=== PATIENT | female | born 1975 | race Caucasian/White ===

== ENCOUNTER → 2017-04-09 | Outpatient (CLI) | payer BC ==
--- NOTE | 2017-04-17 09:56 | MG ---
HISTORY: SCREENING Comparison: October 25, 2008 FINDINGS: Bilateral CC and MLO projections of the right and left breast were obtained utilizing both full-fiel d and push back techniques. Heterogeneously dense fibroglandular tissue is seen to be present with interval breast augmentation with bilateral subpectoral saline implants appearing grossly intact. N o new or developing dominant suspicious architectural distortion, mass or clustered microcalcificati ons can be observed to suggest malignancy. No skin thickening or nipple retraction is appreciated. No pathological lymphadenopathy can be identified. IMPRESSION: NO RADIOGRAPHIC EVIDENCE OF MALIGNANCY. ACR CATEGORY I - NEGATIVE EXAM. FOLLOW-UP EXAM 1 YEAR. Diagnostic CAD was utilized and reviewed. * 0 (ZERO) - ASSESSMENT INCOMPLETE; ADDITIONAL IMAGING IS NEEDED. * 1/ (ONE) - NEGATIVE. * 2/II (TWO) - BENIGN FINDINGS. * 3/III (THREE) - PROBABLY BENIGN FINDING; SHORT INTERVAL FOLLOW-UP SUGGESTED. * 4/IV (FOUR) - SUSPICIOUS ABNORMALITY; BIOPSY SHOULD BE CONSIDERED. * 5/V (FIVE) - HIGHLY SUSPICIOUS OF MALIGNANCY; BIOPSY SHOULD BE PERFORMED. A NEGATIVE X-RAY REPORT SHOULD NOT DELAY BIOPSY IF A DOMINANT OR CLINICALLY SUSPICIOUS MASS IS PRESENT; 4 TO 8 PERCENT OF CANCERS ARE NOT IDENTIFIED BY X-RAY. A NEG ATIVE REPORT MAY REINFORCE THE CLINICAL IMPRESSION. ADENOSIS AND DENSE BREASTS MAY OBSCURE AN UNDER LYING NEOPLASM. Reported By:
== END ==
LOC: RAD 12:47
PROVIDERS: ATTEND Obstetrics & Gynecology
DX: Z12.31 Encounter for screening mammogram for malignant neoplasm of breast (principal)
CPT/HCPCS: 77067

== ENCOUNTER 2018-06-11 02:37 | Inpatient (IN) ==
[2018-06-11 02:45] VITALS: BMI 24.0
[2018-06-11] MEDS ORDERED: ZOFRAN INJ 4 MG VIAL IVP ONE (02:50)
[2018-06-11] MEDS ORDERED: NS 1000 ML 1,000 ML IV ONE (02:50)
[2018-06-11] MEDS ORDERED: TORADOL 30 MG VIAL IVP ONE (02:50)
[2018-06-11] MEDS ORDERED: NS 1000 ML 1,000 ML ONE (02:50)
[2018-06-11] MEDS ORDERED: ZOFRAN INJ 4 MG VIAL ONE (02:51)
[2018-06-11] MEDS ORDERED: TORADOL 30 MG VIAL ONE (02:51)
[2018-06-11 03:01] LABS: BILIRUBIN,URINE NEGATIVE (NEGATIVE); BLOOD/HEMOGLOBIN,URINE 5+ (NEGATIVE); GLUCOSE, URINE NEGATIVE (NEGATIVE); KETONES,URINE 4+ (NEGATIVE); LEUKOCYTE ESTERASE ,URINE 2+ (NEGATIVE); NITRITES,URINE NEGATIVE (NEGATIVE); PROTEIN,URINE 2+ (NEGATIVE); UROBILINOGEN,URINE NORMAL (NORMAL)
[2018-06-11 03:23] LABS: BASOPHILS % (AUTO) 0.1 % (0.2-1.0); HEMATOCRIT 44.6 % (36.0-47.0); HEMOGLOBIN 15.3 g/dL (12.0-16.0); LYMPHOCYTES # (AUTO) 0.5 X10^3/uL (1.3-2.9); LYMPHOCYTES % (AUTO) 2.7 % (21.0-51.0); MEAN CORPUSCULAR HEMOGLOBIN 29.6 pg (27.0-34.0); MEAN CORPUSCULAR HGB CONC 34.4 g/dL (33.0-35.0); MEAN CORPUSCULAR VOLUME 85.9 fL (80.0-100.0); MEAN PLATELET VOLUME 7.7 fL (7.4-11.0); MONOCYTES # (AUTO) 0.9 x10^3/uL (0.3-0.8); MONOCYTES % (AUTO) 4.6 % (0.0-13.0); NEUTROPHILS # (AUTO) 17.7 x10^3/uL (2.2-4.8); NEUTROPHILS % (AUTO) 92.6 % (42.0-75.0); PLATELET COUNT 378 X10^3/uL (150.0-450.0); RED BLOOD COUNT 5.19 X10^6/uL (3.5-5.4); RED CELL DISTRIBUTION WIDTH 13.5 % (11.6-16.5); WHITE BLOOD COUNT 19.2 X10^3/uL (3.6-10.0)
[2018-06-11 03:27] LABS: APPEARANCE,URINE HAZY (CLEAR); COLOR,URINE YELLOW (YELLOW)
[2018-06-11 03:28] LABS: BACTERIA,URINE 1+ /HPF (NEGATIVE); MUCUS,URINE MODERATE /HPF (NEGATIVE); RBC,URINE TNTC /HPF (NONE SEEN); SQUAMOUS EPITHELIAL CELL,UR MANY /HPF (NEGATIVE)
[2018-06-11 03:32] LABS: ALANINE AMINOTRANSFERASE 21 Units/L (12-78); ALBUMIN 3.7 g/dL (3.4-5.0); ALKALINE PHOSPHATASE 58 Units/L (46-116); ASPARTATE AMINO TRANSFERASE 13 Units/L (15-37); BLOOD UREA NITROGEN 24 mg/dL (7-18); CALCIUM 9.2 mg/dL (8.5-10.1); CHLORIDE 101 mmol/L (98-107); CREATININE 0.96 mg/dL (0.55-1.02); SODIUM 136 mmol/L (136-145); TOTAL PROTEIN 7.9 g/dL (6.4-8.2); eGFR NON BLACK RACES > 60 (>60)
--- NOTE | 2018-06-11 03:52 | ED.ABDFE ---
HPI Time Seen Time Seen by Provider: 06/11/18 02:58 PCP Primary Care Physician: RON HPI Comment HPI Comment: PAIN GETTING WORSE. NO FEVER. NO DIARRHEA. Complaint Doctors Chief Complaint Comments: RIGHT FLANK PAIN GOING INTO RLQ WITH N/V AND URINARY FREQUENCY THAT STARTED TONIGHT WHEN SHE WENT TO BED. Chief Complaint:: PATIENT C/O RIGHT SIDED LOWER BACK PAIN THAT RADIATES TO THE RIGHT SIDE OF ABD THAT STARTED TONIGHT SUDDENDLY WITH N/V. PATIENT STATES SHE FEELS LIKE SHE HAS TO URINATE CONSTANTLY BUT IS UNABLE TO REALLY VOID. Self Treatment fo Chief Complaint: TYLENOL 10PM Reviewed Nurses Notes Review: Yes Source History Provided: Patient Mode of arrival Mode of Arrival: Ambulatory Timing Onset of Chief Complaint: 06/11/18 Came on: Suddenly Duration Since Onset: Constant Duration: Hours Location Location: RLQ (ALSO RT LOWER BACK.) Quality Quality: Cramping Context History of: None Modifying factors Worsening Factors: Nothing Improving Factors: Nothing Associated signs and symptoms Associated Signs and Symptoms: Nausea, Vomiting and Frequency PMH PMH Past Medical History: Yes Past Medical History: Hypertension Past Medical History Comment: KIDNEY STONES Past Surgical History: No Family History History of Family Medical Conditions: Yes Family Medical History: Hypertension Social History Does patient currently use any type of tobacco product: No Have you used tobacco products in the last 12 months: No Type of Tobacco Use: None Does any household member use tobacco: No Alcohol Use: None Do you use any recreational Drugs:: No Lives With: Significant Other Lives Where: Home infectious screening In the last 2 months have you had wt loss of >10#?: NO Have you had fever, night sweats or hemotysis?: No Have you traveled outside the country in the last 6 months?: No Isolation: Standard ROS Review of Systems Constitutional: Weakness and Fatigue Eyes: No Symptoms Reported ENTM: No Symptoms Reported Respiratoy: No Symptoms Reported Cardiovascular: No Symptoms Reported Gastrointestinal/Abdominal: Abdominal Pain, Nausea and Vomiting Genitourinary: Frequency Neurological: Weakness Musculoskeletal: Back Pain, Muscle Pain and Back Integumentary: No Symptoms Reported Hematologic/Lymphatic: No Symptoms Reported Endocrine: No Symptoms Reported Psychiatric: No Symptoms Reported All Other Systems: Reviewed and Negative PE Vital Signs Vitals: Temperature 98.6 F Pulse Rate 84 Respiratory Rate 18 Blood Pressure 138/86 O2 Sat by Pulse Oximetry 99 General Limitations: No Limitations General Appearance: Alert and In No Apparent Distress Head Head Exam: Normal Inspection Eyes Eye exam: Normal Appearance and PERRL; negative Scleral Icterus and Conjunctival Injection ENT ENT Exam: Normal Exam, Normal Oropharynx, Normal External Ear Exam, Mucous Membranes Dry and TM's Normal Bilaterally Neck Neck Exam: Normal Inspection and Trachea Midline Chest Chest Inspection: Normal Inspection and Symmetric Chest Wall Rise Respiratory Respiratory Exam: Normal Lung Sounds Bilat Respiratory Exam: Bilateral: Clear to Auscultation Cardiovascular Cardiovascular Exam: Regular Rate, Normal Rhythm and Normal Heart Sounds Abdominal Exam Abdominal Exam: Normal Bowel Sounds, Soft and Tenderness Abdominal Tenderness: RLQ Rectal Rectal Exam: Deferred Back Back Exam: (R) CVA Tenderness Extremeties Extremities Exam: Normal Inspection External Exam: Female: Normal External Exam and Deferred : Speculum Exam (Female): Deferred : Bimanual Exam (female): Deferred Neurologic Neurological Exam: Oriented X3 and CN II-XII Intact; negative Motor Sensory Deficit MDM Additional Information Obtained From Additional information provided by: Family Differential Diagnosis Differential Diagnosis- Considerations may include:: Appendicitis, Bowel Obstruction, Cholcystitis, Cholelethiasis, Constipation, Diverticular disease, Gastritus/PUD, Ovarian cyst/torsion, Pancreatitis, Urinary tract infection and Urolithiasis COURSE Treatment Treatment: SEE ORDERS. IV TORADOL AND ZOFRAN IN ED. NS IV BOLUS IN ED. Education/Counseling Education/Counseling: Patient, Family and Education Educated On: Diagnosis ROR Labs Reviewed Laboratory Results Reviewed?: Yes Result Diagrams: 06/11/18 03:10 06/11/18 03:10 Laboratory: WBC 19.2 X10^3/uL (3.6-10.0) H 06/11/18 03:10 RBC 5.19 X10^6/uL (3.5-5.4) 06/11/18 03:10 Hgb 15.3 g/dL (12.0-16.0) 06/11/18 03:10 Hct 44.6 % (36.0-47.0) 06/11/18 03:10 MCV 85.9 fL (80.0-100.0) 06/11/18 03:10 MCH 29.6 pg (27.0-34.0) 06/11/18 03:10 MCHC 34.4 g/dL (33.0-35.0) 06/11/18 03:10 RDW 13.5 % (11.6-16.5) 06/11/18 03:10 Plt Count 378 X10^3/uL (150.0-450.0) 06/11/18 03:10 Plt Count Comment Adequate (ADEQUATE) 06/11/18 03:10 MPV 7.7 fL (7.4-11.0) 06/11/18 03:10 Neut % (Auto) 92.6 % (42.0-75.0) H 06/11/18 03:10 Lymph % (Auto) 2.7 % (21.0-51.0) L 06/11/18 03:10 Stevens % (Auto) 4.6 % (0.0-13.0) 06/11/18 03:10 Eos % (Auto) 0.0 % (0.9-2.9) L 06/11/18 03:10 Baso % (Auto) 0.1 % (0.2-1.0) L 06/11/18 03:10 Neut # (Auto) 17.7 x10^3/uL (2.2-4.8) H 06/11/18 03:10 Lymph # (Auto) 0.5 X10^3/uL (1.3-2.9) L 06/11/18 03:10 Stevens # (Auto) 0.9 x10^3/uL (0.3-0.8) H 06/11/18 03:10 Eos # (Auto) 0.0 x10^3/uL (0.0-0.2) 06/11/18 03:10 Baso # (Auto) 0.0 X10^3/uL (0.0-0.1) 06/11/18 03:10 Absolute Nucleated RBC 0.2 /100WBC 06/11/18 03:10 Total Counted 100 06/11/18 03:10 Neutrophils % (Manual) 93 % (39-76) H 06/11/18 03:10 Band Neutrophils % 2 % (0-10) 06/11/18 03:10 Lymphocytes % (Manual) 3 % (13-43) L 06/11/18 03:10 Monocytes % (Manual) 2 % (4-9) L 06/11/18 03:10 Plt Morphology Comment Normal (NORMAL) 06/11/18 03:10 RBC Morphology Normal (NORMAL) 06/11/18 03:10 Sodium 136 mmol/L (136-145) 06/11/18 03:10 Corrected Sodium TNP 06/11/18 03:10 Potassium 3.7 mmol/L (3.5-5.1) 06/11/18 03:10 Chloride 101 mmol/L (98-107) 06/11/18 03:10 Carbon Dioxide 25.0 mmol/L (21-32) 06/11/18 03:10 BUN 24 mg/dL (7-18) H 06/11/18 03:10 Creatinine 0.96 mg/dL (0.55-1.02) 06/11/18 03:10 Est GFR (MDRD) Af Amer > 60 (>60) 06/11/18 03:10 Est GFR (MDRD) Non-Af > 60 (>60) 06/11/18 03:10 Glucose 97 mg/dL (65-99) 06/11/18 03:10 Calcium 9.2 mg/dL (8.5-10.1) 06/11/18 03:10 Corrected Calcium TNP 06/11/18 03:10 Total Bilirubin 0.50 mg/dL (0.2-1.0) 06/11/18 03:10 AST 13 Units/L (15-37) L 06/11/18 03:10 ALT 21 Units/L (12-78) 06/11/18 03:10 Alkaline Phosphatase 58 Units/L (46-116) 06/11/18 03:10 Total Protein 7.9 g/dL (6.4-8.2) 06/11/18 03:10 Albumin 3.7 g/dL (3.4-5.0) 06/11/18 03:10 Globulin 4.2 g/dL (2.5-4.5) 06/11/18 03:10 Albumin/Globulin Ratio 0.9 Ratio (1.1-2.1) L 06/11/18 03:10 Specimen Type Clean catch urine 06/11/18 02:53 Urine Color Yellow (YELLOW) 06/11/18 02:53 Urine Appearance Hazy (CLEAR) 06/11/18 02:53 Urine pH 5.0 (5.0 - 8.0) 06/11/18 02:53 Ur Specific [place] 1.020 (1.000-1.030) 06/11/18 02:53 Urine Protein 2+ (NEGATIVE) 06/11/18 02:53 Urine Glucose (UA) Negative (NEGATIVE) 06/11/18 02:53 Urine Ketones 4+ (NEGATIVE) 06/11/18 02:53 Urine Occult Blood 5+ (NEGATIVE) 06/11/18 02:53 Urine Nitrite Negative (NEGATIVE) 06/11/18 02:53 Urine Bilirubin Negative (NEGATIVE) 06/11/18 02:53 Urine Urobilinogen Normal (NORMAL) 06/11/18 02:53 Ur Leukocyte Esterase 2+ (NEGATIVE) 06/11/18 02:53 Urine RBC Tntc /HPF (NONE SEEN) 06/11/18 02:53 Urine WBC 5-10 /HPF (NONE SEEN) 06/11/18 02:53 Ur Squamous Epith Cells Many /HPF (NEGATIVE) 06/11/18 02:53 Urine Bacteria 1+ /HPF (NEGATIVE) 06/11/18 02:53 Urine Mucus Moderate /HPF (NEGATIVE) 06/11/18 02:53 Ur Culture Indicated? Yes/culture set up 06/11/18 02:53 XRAY XRAY Findings: REPORT DISCUSS WITH PATIENT AND HER . Diagnosis Discharge Problem: Kidney stone on right side, Right flank pain, Pyelonephritis
[2018-06-11 04:00] LABS: BAND NEUTROPHILS % 2 % (0-10); PLATELET MORPHOLOGY COMMENT NORMAL (NORMAL)
--- NOTE | 2018-06-11 04:24 | CT ---
CT abdomen and pelvis without contrast Indication: Back pain and flank pain Technique: Helical images through the abdomen and pelvis without contrast. Coronal and sagittal refor mats provided. Comparison: No prior abdominal imaging currently available Findings: Review of bone windows shows no destructive osseous lesion Limited images through the lower chest shows breast implants. There is no other acute abnormality Abdomen: Scattered hepatic hypodensities are noted. These are compatible with cysts. The spleen and p ancreas are normal. The adrenal glands are normal. Innumerable renal hypodensities are compatible wit h cysts most of which are hypodense but several which are indeterminate. Vasculature shows scattered calcifications. The stomach and small bowel are normal. No acute colonic abnormality identified. The appendix is not well seen, probably normal. Several renal stones are seen in the right kidney, right lower pole 5 mm stone on axial image 42, rig ht lower pole/interpolar 5 mm stone on axial image 49 and other punctate stone on axial image 44. In the renal pelvis there are several stones seen on coronal image 25, probably a dozen small stones are more. There is mild dilatation of the collecting system and right ureter, with 3 mm stone at the rig ht ureterovesical junction on coronal image 21 and axial image 78. Pelvis: The urinary bladder and rectum are normal. Uterus and adnexa show no acute abnormality Impression: 1. Mild right hydroureteronephrosis with obstructing stone at the right ureterovesical junction 2. Multiple nonobstructing right renal stones common most of which are in the lower pole and collecti ng in the renal pelvis. 3. Numerous liver and kidney cysts, compatible with autosomal dominant polycystic kidney disease. Nep hrology follow-up will be needed 4. Minimal vascular plaque, and other incidental findings as above Reported By:
[2018-06-11] MEDS ORDERED: ROCEPHIN VIAL 1 GRAM 1 G in NS 100 ML IV + SPIKE MINIBAG* 100 ML IV ONE (04:58)
[2018-06-11] MEDS: NS 1000 ML 1,000 ML IV SCH ×3 (05:00→21:33)
[2018-06-11] MEDS ORDERED: ROCEPHIN VIAL 1 GRAM ONE (05:00)
[2018-06-11] MEDS ORDERED: NS 100 ML IV 100 ML IV ONE (05:00)
[2018-06-11] MEDS ORDERED: PEPCID TAB 20 MG PO PRN (07:27)
[2018-06-11] MEDS ORDERED: ZOFRAN INJ 4 MG VIAL IVP PRN (07:27)
[2018-06-11] MEDS ORDERED: TORADOL 15 MG VIAL IVP PRN (07:31)
[2018-06-11] MEDS ORDERED: FLONASE NASAL SPRAY ENOSTRIL PRN (11:13)
[2018-06-11] MEDS: MORPHINE SULFATE INJ 2 MG INJ IVP PRN ×2 (11:32→17:34)
[2018-06-11] MEDS: ROCEPHIN VIAL 1 GRAM 1 G in NS 100 ML IV + SPIKE MINIBAG* 100 ML IV SCH (11:35)
[2018-06-11] MEDS ORDERED: TOPROL XL PO PRN (11:56)
[2018-06-11] MEDS ORDERED: SINGULAIR TAB 10 MG PO SCH (12:00)
[2018-06-11] MEDS: TORADOL 15 MG VIAL IVP SCH ×3 (12:46→22:33)
[2018-06-11] MEDS: ZESTRIL TAB 10 MG PO SCH (14:25)
[2018-06-11] MEDS ORDERED: AMBIEN PO SCH (21:00)
[2018-06-12] MEDS: MORPHINE SULFATE INJ 2 MG INJ IVP PRN ×2 (02:43→08:38)
[2018-06-12] MEDS: NS 1000 ML 1,000 ML IV SCH (04:42)
[2018-06-12] MEDS: TORADOL 15 MG VIAL IVP SCH ×2 (05:09→11:23)
[2018-06-12 06:20] LABS: BASOPHILS % (AUTO) 0.3 % (0.2-1.0); EOSINOPHILS # (AUTO) 0.1 x10^3/uL (0.0-0.2); EOSINOPHILS % (AUTO) 0.9 % (0.9-2.9); HEMATOCRIT 37.8 % (36.0-47.0); HEMOGLOBIN 12.7 g/dL (12.0-16.0); LYMPHOCYTES % (AUTO) 6.4 % (21.0-51.0); MEAN CORPUSCULAR HEMOGLOBIN 29.2 pg (27.0-34.0); MEAN CORPUSCULAR HGB CONC 33.5 g/dL (33.0-35.0); MEAN CORPUSCULAR VOLUME 87.1 fL (80.0-100.0); MONOCYTES # (AUTO) 1.2 x10^3/uL (0.3-0.8); MONOCYTES % (AUTO) 7.6 % (0.0-13.0); NEUTROPHILS # (AUTO) 13.3 x10^3/uL (2.2-4.8); NEUTROPHILS % (AUTO) 84.8 % (42.0-75.0); PLATELET COUNT 273 X10^3/uL (150.0-450.0); RED BLOOD COUNT 4.34 X10^6/uL (3.5-5.4); WHITE BLOOD COUNT 15.7 X10^3/uL (3.6-10.0)
[2018-06-12 06:32] LABS: ALANINE AMINOTRANSFERASE 17 Units/L (12-78); ALBUMIN 2.2 g/dL (3.4-5.0); ALKALINE PHOSPHATASE 47 Units/L (46-116); ASPARTATE AMINO TRANSFERASE 14 Units/L (15-37); BLOOD UREA NITROGEN 13 mg/dL (7-18); CALCIUM 7.9 mg/dL (8.5-10.1); CARBON DIOXIDE 15.9 mmol/L (21-32); CHLORIDE 108 mmol/L (98-107); COR CA(FOR HYPOALB) 9.3 mg/dL (8.5-10.1); CREATININE 0.95 mg/dL (0.55-1.02); SODIUM 137 mmol/L (136-145); TOTAL PROTEIN 5.7 g/dL (6.4-8.2); eGFR NON BLACK RACES > 60 (>60)
--- NOTE | 2018-06-12 08:07 | DR.H&P ---
H&P - History & Physical for Day of: H&P Date: 06/11/18 - Chief Complaint Chief Complaint: right flank pain and lower back pain - History of Present Illness History of Present Illness: is a 42 year old patient of ours who presented to the emergency room with reports of right flank pain. Patient reports symptoms started suddenly tonight. She reports associated nausea and vomiting. Pain reportedly radiates to her lower back and right side of abdomen. Patient states she feels like she needs to void constantly but has been unable to fully empty bladder. On examination, patient is noted with right lower quadrant abdominal tenderness on palpation. On arrival, vitals were 98.6, 84, 18, 99% RA, 138/86. Labs were obtained. Abnormal lab values include the following: WBC 19.2, Neut% 92.6, Lymph% 2.7, Eos% 0.0, Baso% 0.1, Neut# 17.7, Lymph# 0.5, Mora# 0.9, Neutrophils 93, Lymphocytes 3, Monocytes 2, BUN 24, AST 13, A/G Ratio 0.9. Urinalysis revealed Protein 2+, Ketones 4+, Occult Blood 5+, Leuk Est 2+, RBC Tntc, WBC 5-10, Bacteria 1+, Mucus Moderate and a Culture Pending. An abdomen and pelvis CT obtained revealed mild right hydroureteronephrosis with obstructing stone at the right ureterovesical junction. Multiple nonobstructing right renal stones common most of which are in the lower pole and collecting in the renal pelvis. Numerous liver and kidney cysts, compatible with autosomal dominant polycystic kidney disease. She was given toradol 30mg IV x 1 dose, Normal saline 1 liter bolus, and rocephin 1gm iv x 1 dose. She was then started on Normal saline at 125ml/hr. She was admitted to the hospitals for further evaluation and treatment. We plan to follow up with AM labs and continue to monitor patient. - Past Medical History Past Medical History: Hypertension - Past Surgical History Surgical History: COIL WINDER HAND Surgery - Family History Family Medical History: Hypertension - Social History Does patient currently use any type of tobacco product: No Have you used tobacco products in the last 12 months: No Type of Tobacco Use: None Does any household member use tobacco: No Alcohol Use: None Drug Use: None - Medications Home Medications: No Known Drug Allergies Allergy (Verified 06/11/18 02:45) CONTINUE taking the following medications dextroamphetamine-amphetamine 1 tab PO DAILY PRN 06/11/18 [History] lisinopril 1 tab PO DAILY 06/11/18 [History] metoprolol succinate 1 tab PO DAILY PRN 06/11/18 [History] zolpidem 1 tab PO HS 06/11/18 [History] - Physical Exam Vital Signs: Temperature 98.2 F Pulse Rate [Apical] 97 Pulse Rate 84 Respiratory Rate 16 Blood Pressure [Right Arm] 92/54 Blood Pressure 138/86 O2 Sat by Pulse Oximetry 97 - Allergies Allergies/Adverse Reactions: Allergies Allergy/AdvReac Type Severity Reaction Status Date / Time No Known Drug Allergies Allergy Verified 06/11/18 02:45
--- NOTE | 2018-06-12 08:30 | CT ---
HISTORY: Renal calculi, right ureteral calculi Study: CT abdomen pelvis without contrast Comparison: 06/11/2018 Technique: Axial noncontrast images with coronal and sagittal reformats. Dose reduction procedures we re used with mA/kv adjusted for body size. Findings: Minimal bilateral pleural effusions are present. The lung bases are otherwise clear. The liver, splee n, adrenal glands, and pancreas are within normal limits to the limitations of an unenhanced examinat ion. Incidental note is made of multiple benign appearing hepatic cysts. No opaque stones are visible within the gallbladder. The kidneys are enlarged and extensively involved with cysts consistent with adult polycystic renal disease. No left renal or ureteral calculi are identified. Right lower pole r enal calculi are identified as are tiny right upper pole calculi. There are nonobstructing. There is mild residual hydroureteronephrosis on the right however the previously noted right UPJ calculus appe ars to have passed. The abdominal aorta demonstrates some calcific atherosclerotic change but no dila tation. No significant intraperitoneal or retroperitoneal lymphadenopathy is identified. There are no findings suggestive of diverticulitis or colitis. Examination of the pelvis demonstrated no definite pelvic masses, pelvic fluid, or pelvic lymphadenopathy. The appendix is normal. No lytic or blastic skeletal lesions are identified. IMPRESSION: The previously noted distal right ureteral calculus has passed Nonobstructing right renal calculi as described Polycystic kidneys having an appearance compatible with adult polycystic renal disease Benign hepatic cysts Reported By:
[2018-06-12] MEDS: ROCEPHIN VIAL 1 GRAM 1 G in NS 100 ML IV + SPIKE MINIBAG* 100 ML IV SCH (08:44)
[2018-06-12] MEDS: ZESTRIL TAB 10 MG PO SCH (08:45)
[2018-06-12 09:45] VITALS: BP 98/55
[2018-06-16 15:53] LABS: STONE WEIGHT 52mg
--- NOTE | 2018-07-18 22:58 | DR.CARTERD ---
- Discharge Summary for: Discharge Summary for Date of:: 06/12/18 - Admission Date Date of Admission: 06/11/18 - Admission Diagnoses Admission Diagnosis: 1- Abdominal pain 2- Nausea and vomiting 3- Renal calculi - Discharge Date Discharge Date: 06/12/18 - Discharge Diagnoses Discharge Diagnosis: 1- Abdominal pain 2- Nausea and vomiting 3- Renal calculi 4- E. Coli UTI - Hospital Course Hospital Course: Ms. Zepeda is a 42 year old patient of ours who presented to the emergency room with reports of right flank pain. Patient reported symptoms started suddenly. She reported associated nausea and vomiting. Pain reportedly radiated to her lower back and right side of abdomen. Patient stated she felt like she needed to void constantly but had been unable to fully empty bladder. On examination, patient was noted with right lower quadrant abdominal tenderness on palpation. On arrival, vitals were 98.6, 84, 18, 99% RA, 138/86. Labs were obtained. Abnormal lab values included the following: WBC 19.2, Neut% 92.6, Lymph% 2.7, Eos% 0.0, Baso% 0.1, Neut# 17.7, Lymph# 0.5, Bleckley# 0.9, Neutrophils 93, Lymphocytes 3, Monocytes 2, BUN 24, AST 13, A/G Ratio 0.9. Urinalysis revealed Protein 2+, Ketones 4+, Occult Blood 5+, Leuk Est 2+, RBC Tntc, WBC 5-10, Bacteria 1+, Mucus Moderate and a Culture Pending. An abdomen and pelvis CT obtained revealed mild right hydroureteronephrosis with obstructing stone at the right ureterovesical junction. Multiple nonobstructing right renal stones common most of which are in the lower pole and collecting in the renal pelvis. Numerous liver and kidney cysts, compatible with autosomal dominant polycystic kidney disease. She was given toradol 30mg IV x 1 dose, Normal saline 1 liter bolus, and rocephin 1gm iv x 1 dose. She was then started on Normal saline at 125ml/hr. She was admitted to the hospital for further evaluation and treatment. After admission, patient was able to pass several stones. Stones were sent to labs for analysis. We continued treatment. Day two, patient reported she felt better. She denied nausea or vomiting or abdominal pain. Patient reported voiding without difficulty. Vital signs stable. Labs wnl. Final urine culture reported E.Coli. We planned for discharge with oral antibiotics according to culture and sensitivity. Instructions for medications and follow up were discussed with patient and family, both voiced understanding. Patient discharged home in stable condition with family. Labs: Microbiology 06/11/18 02:53 Urine,Clean Catch Urine Culture - Final Escherichia Coli - Discharge Medications Discharge Medications: Home Medication List dextroamphetamine-amphetamine 1 tab PO DAILY PRN 06/11/18 [History] lisinopril 1 tab PO DAILY 06/11/18 [History] metoprolol succinate 1 tab PO DAILY PRN 06/11/18 [History] zolpidem 1 tab PO HS 06/11/18 [History] cefdinir 300 mg PO BID #14 cap 06/12/18 [Rx] ketorolac 10 mg PO Q8H #20 tab 06/12/18 [Rx] Prescriptions: cefdinir Samy Lau ketorolac Samy Lau - Discharge Disposition Discharge Disposition: Patient is to follow up in our office in one week.
== END 2018-06-12 11:30 | disposition home or self-care (01) | DRG 694 ==
LOC: ER 02:41 → MED/SURG 06:57
PROVIDERS: ADMIT Internal Medicine; ATTEND Internal Medicine
DX: N39.0 Urinary tract infection, site not specified; R10.31 Right lower quadrant pain; B96.29 Other Escherichia coli [E. coli] as the cause of diseases classified elsewhere; I10 Essential (primary) hypertension; M54.5 Low back pain; K76.89 Other specified diseases of liver; R11.2 Nausea with vomiting, unspecified; N12 Tubulo-interstitial nephritis, not specified as acute or chronic; N28.1 Cyst of kidney, acquired; N20.0 Calculus of kidney
CPT/HCPCS: 36415; 74176; 80053; 81001; 82365; 85025; 87086; 87088; 87186; 96365; 96367; 96374; 96375; 99283; 99284; A4222; J0696; J1885; J2270; J2405; J7030; J7050